=== PATIENT | male | born 1945 | race Caucasian/White ===

== ENCOUNTER 2017-02-04 14:00 | Outpatient (RCR) | payer MEDICARE ==
[2017-01-28 16:18] LABS: BASOPHILS # (AUTO) 0.1 10^3/uL (0.0-0.1); BASOPHILS % (AUTO) 1 % (0-10); EOSINOPHILS # (AUTO) 0.3 10^3/uL (0.0-0.3); EOSINOPHILS % (AUTO) 6 % (0-10); LYMPHOCYTES # (AUTO) 1.2 X 10^3 (1.0-4.0); LYMPHOCYTES % (AUTO) 24 % (12-44); MEAN CORPUSCULAR HEMOGLOBIN 30 PG (25-34); MEAN CORPUSCULAR HGB CONC 33 G/DL (32-36); MEAN CORPUSCULAR VOLUME 91 FL (80-99); MEAN PLATELET VOLUME 11.9 FL (7.4-10.4); MONOCYTES # (AUTO) 0.5 X 10^3 (0.0-1.0); MONOCYTES % (AUTO) 10 % (0-12); NEUTROPHILS % (AUTO) 60 % (42-75); PLATELET COUNT 191 10^3/uL (130-400); RED BLOOD COUNT 4.88 10^6/uL (4.35-5.85); RED CELL DISTRIBUTION WIDTH 14.8 % (10.0-14.5)
[2017-01-28 16:44] LABS: ALANINE AMINOTRANSFERASE 18 U/L (0-55); ALBUMIN 4.4 G/DL (3.2-4.5); ANION GAP 9 MMOL/L (5-14); ASPARTATE AMINO TRANSFERASE 22 U/L (5-34); BILIRUBIN,TOTAL 0.5 MG/DL (0.1-1.0); BLOOD UREA NITROGEN 15 MG/DL (7-18); BUN/CREATININE RATIO 15; CALCIUM 9.4 MG/DL (8.5-10.1); CARBON DIOXIDE 26 MMOL/L (21-32); CHLORIDE 105 MMOL/L (98-107); CREATININE SERUM 1.01 MG/DL (0.60-1.30); GFR ESTIMATED > 60; GLUCOSE 100 MG/DL (70-105); LACTATE DEHYDROGENASE 288 U/L (125-220); POTASSIUM 4.7 MMOL/L (3.6-5.0); SODIUM 140 MMOL/L (135-145); TOTAL PROTEIN 7.5 G/DL (6.4-8.2)
== END 2017-04-28 | disposition home or self-care (01) ==
LOC: PAR 14:00
PROVIDERS: ATTEND Internal Medicine Hematology & Oncology
DX: C83.34 Diffuse large B-cell lymphoma, lymph nodes of axilla and upper limb (principal); I25.10 Atherosclerotic heart disease of native coronary artery without angina pectoris; Z79.899 Other long term (current) drug therapy
CPT/HCPCS: 36415; 80053; 83615; 85025; 99213

== ENCOUNTER → 2018-02-03 | Outpatient (CLI) | payer MEDICARE ==
[2018-02-03 13:44] LABS: BASOPHILS % (AUTO) 1 % (0-10); EOSINOPHILS # (AUTO) 0.1 10^3/uL (0.0-0.3); EOSINOPHILS % (AUTO) 1 % (0-10); HEMATOCRIT 43 % (40-54); HEMOGLOBIN 14.5 G/DL (13.3-17.7); LYMPHOCYTES # (AUTO) 1.2 X 10^3 (1.0-4.0); LYMPHOCYTES % (AUTO) 19 % (12-44); MEAN CORPUSCULAR HEMOGLOBIN 31 PG (25-34); MEAN CORPUSCULAR HGB CONC 34 G/DL (32-36); MEAN CORPUSCULAR VOLUME 93 FL (80-99); MEAN PLATELET VOLUME 10.9 FL (7.4-10.4); MONOCYTES # (AUTO) 0.6 X 10^3 (0.0-1.0); MONOCYTES % (AUTO) 10 % (0-12); NEUTROPHILS # (AUTO) 4.4 X 10^3 (1.8-7.8); NEUTROPHILS % (AUTO) 70 % (42-75); PLATELET COUNT 190 10^3/uL (130-400); RED BLOOD COUNT 4.67 10^6/uL (4.35-5.85); RED CELL DISTRIBUTION WIDTH 15.1 % (10.0-14.5); WHITE BLOOD COUNT 6.4 10^3/uL (4.3-11.0)
[2018-02-03 14:06] LABS: ALANINE AMINOTRANSFERASE 21 U/L (0-55); ALBUMIN 4.3 GM/DL (3.2-4.5); ALKALINE PHOSPHATASE 77 U/L (40-136); BILIRUBIN,TOTAL 0.7 MG/DL (0.1-1.0); BUN/CREATININE RATIO 19; CALCIUM 9.6 MG/DL (8.5-10.1); CARBON DIOXIDE 28 MMOL/L (21-32); CHLORIDE 104 MMOL/L (98-107); CREATININE SERUM 1.17 MG/DL (0.60-1.30); GFR ESTIMATED > 60; GLUCOSE 83 MG/DL (70-105); POTASSIUM 4.4 MMOL/L (3.6-5.0); SODIUM 139 MMOL/L (135-145); TOTAL PROTEIN 7.2 GM/DL (6.4-8.2)
== END ==
LOC: EDSTATUS 04-29 11:24 → ONC 13:26
PROVIDERS: ATTEND Internal Medicine Hematology & Oncology
DX: C83.34 Diffuse large B-cell lymphoma, lymph nodes of axilla and upper limb (principal); I25.10 Atherosclerotic heart disease of native coronary artery without angina pectoris; E78.5 Hyperlipidemia, unspecified; K59.00 Constipation, unspecified; Z95.1 Presence of aortocoronary bypass graft; Z79.82 Long term (current) use of aspirin; Z79.899 Other long term (current) drug therapy; Z92.21 Personal history of antineoplastic chemotherapy; Z92.3 Personal history of irradiation
CPT/HCPCS: 36415; 80053; 83615; 85025; 99213

== ENCOUNTER 2018-03-03 05:50 | Outpatient (CLI) | payer MEDICARE ==
[~2018-03-03] VITALS: Ht 185.4 cm; Wt 98.9 kg
[2018-03-03] MEDS ORDERED: SOTA120T PO (15:01)
[2018-03-03] MEDS ORDERED: ASPI-586 PO (15:01)
[2018-03-03] MEDS ORDERED: FURO20TA4 PO (15:01)
[2018-03-03] MEDS ORDERED: LUBI24CA6 PO (15:01)
[2018-03-03] MEDS ORDERED: LANS30TA3 PO (15:01)
[2018-03-03] MEDS ORDERED: IBUP-1780 PO (15:01)
== END 2018-03-03 15:02 ==
LOC: PREOP 05:50
PROVIDERS: ATTEND Surgery
DX: Z01.818 Encounter for other preprocedural examination (principal); Z12.11 Encounter for screening for malignant neoplasm of colon

== ENCOUNTER 2018-03-08 07:37 | Day surgery (SDC) | payer MEDICARE ==
[~2018-03-08] VITALS: Ht 185.4 cm; Wt 98.9 kg
[~2018-03-08 07:37] MED LIST: ASPI-586 PO; FURO20TA4 PO; IBUP-1780 PO; LANS30TA3 PO; LUBI24CA6 PO; SOTA120T PO
--- OUTSIDE RECORDS SUMMARY | 2018-03-08 07:41 | XMS REPORT | Continuity of Care Document ---
Author Author [facility] Address Unknown Phone Unavailable Allergies Active Description Code Type Severity Reaction Onset Reported/Identified Relationship to Patient Clinical Status Yes No Known Drug Allergies [id number] N/A N/A Yes No Known Drug Allergies [id number] Drug Allergy Unknown N/A 08/20/2010 Medications There is no data. Problems Date Dx Coded Attending Type Code Diagnosis Diagnosed By 12/23/2010 Ot 202.88 12/23/2010 Ot 414.00 12/23/2010 Ot 789.09 12/23/2010 Ot V15.3 12/23/2010 Ot V45.81 12/23/2010 Ot V58.69 12/23/2010 Ot V87.41 01/23/2011 Ot 789.00 08/04/2012 Ot 202.80 08/21/2013 BURAK IBARRA MD Ot 202.80 OTH LYMPHOMAS EXTRANODAL SOLID ORGAN U 08/27/2014 BURAK IBARRA MD Ot 202.80 03/04/2015 BURAK IBARRA MD Ot 202.80 07/25/2015 Ot 202.80 07/25/2015 Ot 789.00 07/25/2015 Ot 793.1 07/25/2015 Ot 530.81 07/25/2015 Ot 564.00 07/25/2015 Ot 787.01 07/25/2015 Ot 787.91 07/25/2015 Ot 789.00 07/25/2015 Ot 202.80 07/25/2015 Ot 202.80 07/25/2015 Ot 414.00 07/25/2015 Ot V45.81 07/25/2015 Ot 600.00 07/25/2015 Ot 789.01 07/25/2015 Ot 789.01 07/25/2015 Ot V72.84 07/25/2015 Ot 530.11 07/25/2015 BURAK IABRRA MD Ot 202.80 09/18/2015 BURAK IBARRA MD Ot C83.30 09/18/2015 BURAK IBARRA MD Ot I25.10 09/18/2015 FRED SHEA, BURAK Ot Z79.899 09/19/2015 FRED SHEA, BURAK Ot C83.30 09/19/2015 FRED SHEA, BURAK Ot I25.10 09/19/2015 FRED SHEA, BURAK Ot Z79.899 10/10/2015 Ot C85.14 10/21/2015 Ot C85.14 10/23/2015 FRED SHEA, BURAK Ot C83.30 DIFFUSE LARGE B-CELL LYMPHOMA, UNSPECIFI 10/23/2015 FRED SHEA, BURAK Ot I25.10 ATHSCL HEART DISEASE OF [place] CORONARY 10/23/2015 BURAK IBARRA MD, Ot Z79.899 OTHER PRIMARY PRODUCTS INSPECTORS (CURRENT) DRUG THERAPY 12/27/2015 BURAK IBARRA MD Ot 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, LYMPH NODES OF AXI 12/30/2015 BURAK IBARRA MD Ot 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, LYMPH NODES OF AXI 12/31/2015 FRED SHEA, BURAK Ot 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, NODES OF AXI 12/31/2015 FRED SHEA, BURAK Ot 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, LYMPH NODES OF AXI 01/01/2016 BURAK IBARRA MD Ot C83.30 DIFFUSE LARGE B-CELL LYMPHOMA, UNSPECIFI 01/01/2016 FRED SHEA, BURAK Ot I25.10 ATHSCL HEART DISEASE OF [place] CORONARY 01/01/2016 BURAK IBARRA MD Ot Z79.899 OTHER PRIMARY PRODUCTS INSPECTORS (CURRENT) DRUG THERAPY 01/03/2016 BURAK IBARRA MD Ot C83.30 DIFFUSE LARGE B-CELL LYMPHOMA, UNSPECIFI 01/03/2016 FRED SHEA, BURAK Ot I25.10 ATHSCL HEART DISEASE OF [place] CORONARY 01/03/2016 BURAK IBARRA MD Ot Z79.899 OTHER PENITENTIARY (CURRENT) DRUG THERAPY 01/16/2016 BURAK IBARRA MD Ot 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, NODES OF AXI 01/16/2016 BURAK IBARRA MD Ot 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, LYMPH NODES OF AXI 01/22/2016 FRED SHEA, BURAK Ot 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, NODES OF AXI 01/22/2016 FRED SHEA, BURAK Ot 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, LYMPH NODES OF AXI 02/13/2016 FRED SHEA, BURAK Young C83.30 DIFFUSE LARGE B-CELL LYMPHOMA, UNSPECIFI 02/13/2016 BURAK IBARRA MD Ot I25.10 ATHSCL HEART DISEASE OF [place] CORONARY 02/13/2016 BURAK IBARRA MD Ot Z79.899 OTHER PENITENTIARY (CURRENT) DRUG THERAPY 02/27/2016 BURAK IBARRA MD, Ot C83.30 DIFFUSE LARGE B-CELL LYMPHOMA, UNSPECIFI 02/27/2016 BURAK IBARRA MD Ot I25.10 ATHSCL HEART DISEASE OF [place] CORONARY 02/27/2016 BURAK IBARRA MD Ot Z79.899 OTHER PENITENTIARY (CURRENT) DRUG THERAPY 2016 BURAK IBARRA MD, Ot C83.30 DIFFUSE LARGE B-CELL LYMPHOMA, UNSPECIFI 2016 BURAK IBARRA MD Ot I25.10 ATHSCL HEART DISEASE OF [place] CORONARY 2016 BURAK IBARRA MD Ot Z79.899 OTHER PENITENTIARY (CURRENT) DRUG THERAPY 04/07/2016 BURAK IBARRA MD, Ot C83.30 DIFFUSE LARGE B-CELL LYMPHOMA, UNSPECIFI 04/07/2016 BURAK IBARRA MD Ot I25.10 ATHSCL HEART DISEASE OF [place] CORONARY 04/07/2016 BURAK IBARRA MD Ot Z79.899 OTHER PENITENTIARY (CURRENT) DRUG THERAPY 01/21/2017 BURAK IBARRA MD Ot C83.30 DIFFUSE LARGE B-CELL LYMPHOMA, UNSPECIFI 01/21/2017 BURAK IBARRA MD Ot I25.10 ATHSCL HEART DISEASE OF [place] CORONARY 01/21/2017 BURAK IBARRA MD Ot Z79.899 OTHER PRIMARY PRODUCTS INSPECTORS (CURRENT) DRUG THERAPY 01/29/2017 BURAK IBARRA MD Ot 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, NODES OF AXI 01/29/2017 BURAK IBARRA MD Ot I25.10 ATHSCL HEART DISEASE OF [place] CORONARY 01/29/2017 BURAK IBARRA MD Ot Z79.899 OTHER PRIMARY PRODUCTS INSPECTORS (CURRENT) DRUG THERAPY 03/15/2017 BURAK IBARRA MD Ot 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, NODES OF AXI 03/15/2017 BURAK IBARRA MD Ot I25.10 ATHSCL HEART DISEASE OF [place] CORONARY 03/15/2017 BURAK IBARRA MD Ot Z79.899 OTHER PRIMARY PRODUCTS INSPECTORS (CURRENT) DRUG THERAPY 03/19/2017 BURAK IBARRA MD Ot 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, NODES OF AXI 03/19/2017 BURAK IBARRA MD Ot I25.10 ATHSCL HEART DISEASE OF [place] CORONARY 03/19/2017 BURAK IBARRA MD Ot Z79.899 OTHER PENITENTIARY (CURRENT) DRUG THERAPY 04/28/2017 BURAK IBARRA MD Ot 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, NODES OF AXI 04/28/2017 BURAK IBARRA MD Ot I25.10 ATHSCL HEART DISEASE OF [place] CORONARY 04/28/2017 BURAK IBARRA MD Ot Z79.899 OTHER PRIMARY PRODUCTS INSPECTORS (CURRENT) DRUG THERAPY 04/29/2017 BURAK IBARRA MD Ot 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, NODES OF AXI 04/29/2017 BURAK IBARRA MD Ot I25.10 ATHSCL HEART DISEASE OF [place] CORONARY 04/29/2017 BURAK IBARRA MD Ot Z79.899 OTHER PENITENTIARY (CURRENT) DRUG THERAPY 05/06/2017 BURAK IBARRA MD Ot 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, NODES OF AXI 05/06/2017 BURAK IBARRA MD Ot I25.10 ATHSCL HEART DISEASE OF [place] CORONARY 05/06/2017 BURAK IBARRA MD Ot Z79.899 OTHER PENITENTIARY (CURRENT) DRUG THERAPY 05/06/2017 BURAK IBARRA MD Ot 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, NODES OF AXI 05/06/2017 BURAK IBARRA MD Ot I25.10 ATHSCL HEART DISEASE OF [place] CORONARY 05/06/2017 BURAK IBARRA MD Ot Z79.899 OTHER PRIMARY PRODUCTS INSPECTORS (CURRENT) DRUG THERAPY 02/03/2018 BURAK IBARRA MD Ot 202.80 OTH LYMPHOMAS EXTRANODAL SOLID ORGAN U 02/03/2018 Ot 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, LYMPH NODES OF AXI 02/03/2018 BURAK IBARRA MD, Ot 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, NODES OF AXI 02/03/2018 BURAK IBARRA MD Ot 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, LYMPH NODES OF AXI 02/04/2018 FRED SHEA, BURAK Young 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, NODES OF AXI 02/04/2018 BURAK IBARRA MD Ot E78.5 HYPERLIPIDEMIA, UNSPECIFIED 02/04/2018 BURAK IBARRA MD Ot I25.10 ATHSCL HEART DISEASE OF [place] CORONARY 02/04/2018 BURAK IBARRA MD Ot K59.00 CONSTIPATION, UNSPECIFIED 02/04/2018 BURAK IBARRA MD Ot Z79.82 PENITENTIARY (CURRENT) USE OF ASPIRIN 02/04/2018 BURAK IBARRA MD Ot Z79.899 OTHER PRIMARY PRODUCTS INSPECTORS (CURRENT) DRUG THERAPY 02/04/2018 BURAK IBARRA MD Ot Z92.21 PERSONAL HISTORY OF ANTINEOPLASTIC CHEMO 02/04/2018 BURAK IBARRA MD Ot Z92.3 PERSONAL HISTORY OF IRRADIATION 02/04/2018 BURAK IBARRA MD Ot Z95.1 PRESENCE OF AORTOCORONARY BYPASS GRAFT 02/24/2018 BURAK IBARRA MD, Ot 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, NODES OF AXI 02/24/2018 BURAK IBARRA MD Ot E78.5 HYPERLIPIDEMIA, UNSPECIFIED 02/24/2018 BURAK IBARRA MD Ot I25.10 ATHSCL HEART DISEASE OF [place] CORONARY 02/24/2018 BURAK IBARRA MD Ot K59.00 CONSTIPATION, UNSPECIFIED 02/24/2018 BURAK IBARRA MD Ot Z79.82 PRIMARY PRODUCTS INSPECTORS (CURRENT) USE OF ASPIRIN 02/24/2018 BURAK IBARRA MD Ot Z79.899 OTHER PRIMARY PRODUCTS INSPECTORS (CURRENT) DRUG THERAPY 02/24/2018 BURAK IBARRA MD Ot Z92.21 PERSONAL HISTORY OF ANTINEOPLASTIC CHEMO 02/24/2018 BURAK IBARRA MD Ot Z92.3 PERSONAL HISTORY OF IRRADIATION 02/24/2018 BURAK IBARRA MD Ot Z95.1 PRESENCE OF AORTOCORONARY BYPASS GRAFT 03/02/2018 BURAK IBARRA MD Ot 202.80 OTH LYMPHOMAS EXTRANODAL SOLID ORGAN U 03/02/2018 Ot 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, LYMPH NODES OF AXI 03/02/2018 FRED SEHA, BURAK Ot 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, NODES OF AXI 03/02/2018 FRED SHEA, BURAK Ot 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, LYMPH NODES OF AXI 03/02/2018 FRED SHEA, BURAK Ot 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, NODES OF AXI 03/02/2018 BURAK IBARRA MD Ot E78.5 HYPERLIPIDEMIA, UNSPECIFIED 03/02/2018 BURAK IBARRA MD Ot I25.10 ATHSCL HEART DISEASE OF [place] CORONARY 03/02/2018 BURAK IBARRA MD Ot K59.00 CONSTIPATION, UNSPECIFIED 03/02/2018 BURAK IBARRA MD Ot Z79.82 PRIMARY PRODUCTS INSPECTORS (CURRENT) USE OF ASPIRIN 03/02/2018 BURAK IBARRA MD Ot Z79.899 OTHER PENITENTIARY (CURRENT) DRUG THERAPY 03/02/2018 BURAK IBARRA MD Ot Z92.21 PERSONAL HISTORY OF ANTINEOPLASTIC CHEMO 03/02/2018 BURAK IBARRA MD Ot Z92.3 PERSONAL HISTORY OF IRRADIATION 03/02/2018 BURAK IBARRA MD Ot Z95.1 PRESENCE OF AORTOCORONARY BYPASS GRAFT 03/03/2018 BURAK IBARRA MD Ot 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, NODES OF AXI 03/03/2018 BURAK IBARRA MD Ot E78.5 HYPERLIPIDEMIA, UNSPECIFIED 03/03/2018 BURAK IBARRA MD Ot I25.10 ATHSCL HEART DISEASE OF [place] CORONARY 03/03/2018 BURAK IBARRA MD Ot K59.00 CONSTIPATION, UNSPECIFIED 03/03/2018 BURAK IBARRA MD Ot Z79.82 PRIMARY PRODUCTS INSPECTORS (CURRENT) USE OF ASPIRIN 03/03/2018 BURAK IBARRA MD Ot Z79.899 OTHER PENITENTIARY (CURRENT) DRUG THERAPY 03/03/2018 BURAK IBARRA MD Ot Z92.21 PERSONAL HISTORY OF ANTINEOPLASTIC CHEMO 03/03/2018 BURAK IBARRA MD Ot Z92.3 PERSONAL HISTORY OF IRRADIATION 03/03/2018 BURAK IBARRA MD Ot Z95.1 PRESENCE OF AORTOCORONARY BYPASS GRAFT 03/03/2018 HINTON DO, AYANNA D Ot Z01.818 ENCOUNTER FOR OTHER PREPROCEDURAL EXAMIN 03/03/2018 HINTON DO, AYANNA D Ot Z12.11 ENCOUNTER FOR SCREENING FOR MALIGNANT NE 03/07/2018 HINTON DO, AYANNA D Ot Z01.818 ENCOUNTER FOR OTHER PREPROCEDURAL EXAMIN 03/07/2018 HINTON DO, AYANNA D Ot Z12.11 ENCOUNTER FOR SCREENING FOR MALIGNANT NE 03/07/2018 HINTON DO, AYANNA D Ot Z01.818 ENCOUNTER FOR OTHER PREPROCEDURAL EXAMIN 03/07/2018 HINTON DO, AYANNA D Ot Z12.11 ENCOUNTER FOR SCREENING FOR MALIGNANT NE 03/08/2018 BURAK IBARRA MD Ot 202.80 OTH LYMPHOMAS EXTRANODAL SOLID ORGAN U 03/08/2018 Ot 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, LYMPH NODES OF AXI 03/08/2018 BURAK IBARRA MD Ot 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, NODES OF AXI 03/08/2018 BURAK IBARRA MD Ot 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, LYMPH NODES OF AXI 03/08/2018 BURAK IBARRA MD Ot 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, NODES OF AXI 03/08/2018 BURAK IBARRA MD Ot E78.5 HYPERLIPIDEMIA, UNSPECIFIED 03/08/2018 BURAK IBARRA MD Ot I25.10 ATHSCL HEART DISEASE OF [place] CORONARY 03/08/2018 BURAK IBARRA MD Ot K59.00 CONSTIPATION, UNSPECIFIED 03/08/2018 BURAK IBARRA MD Ot Z79.82 PRIMARY PRODUCTS INSPECTORS (CURRENT) USE OF ASPIRIN 03/08/2018 BURAK IBARRA MD Ot Z79.899 OTHER PENITENTIARY (CURRENT) DRUG THERAPY 03/08/2018 BURAK IBARRA MD Ot Z92.21 PERSONAL HISTORY OF ANTINEOPLASTIC CHEMO 03/08/2018 BURAK IBARRA MD Ot Z92.3 PERSONAL HISTORY OF IRRADIATION 03/08/2018 BURAK IBARRA MD, Ot Z95.1 PRESENCE OF AORTOCORONARY BYPASS GRAFT Procedures There is no data. Results There is no data. Encounters ACCT No. Visit Date/Time Discharge Status Pt. Type Provider Facility Loc./Unit Complaint [id number] 01/13/2018 10:43:43 01/13/2018 23:59:59 CLS Outpatient Adolph Bush V [id number] 03/03/2018 05:50:00 03/03/2018 15:02:00 DIS Outpatient AYANNA HINTON DO [facility] PREOP COLONOSCOPY [id number] 02/03/2018 13:26:00 02/03/2018 23:59:59 CLS Outpatient BURAK IBARRA MD [facility] ONC [id number] 02/04/2017 14:00:00 04/28/2017 00:01:00 DIS Outpatient BURAK IBARRA MD [facility] PAR [id number] 02/06/2016 14:30:00 2016 00:01:00 DIS Outpatient BURAK IBARRA MD [facility] PAR [id number] 12/27/2015 06:45:00 12/27/2015 23:59:59 CLS Outpatient BURAK IBARRA MD [facility] RAD LYMPHOMA [id number] 09/26/2015 09:35:00 10/23/2015 00:01:00 DIS Outpatient BURAK IBARRA MD [facility] PAR [id number] 07/30/2014 13:16:00 07/30/2014 23:59:59 CLS Outpatient BURAK IBARRA MD [facility] PAR 1 YEAR F/U [id number] 08/07/2013 14:30:00 08/21/2013 14:35:00 DIS Outpatient BURAK IBARRA MD [facility] PAR LABS/OV [id number] 03/08/2018 07:37:00 ACT Outpatient AYANNA HINTON DO [facility] ENDO SCREENING [id number] 09/20/2015 07:18:00 Document Registration [id number] 08/01/2012 13:30:00 Document Registration [id number] 12/10/2011 05:46:00 Document Registration [id number] 12/08/2011 07:30:00 Document Registration [id number] 10/09/2011 06:51:00 Document Registration [id number] 10/07/2011 14:20:00 Document Registration [id number] 07/27/2011 14:14:00 Document Registration [id number] 07/23/2011 05:50:00 Document Registration [id number] 01/24/2011 00:00:00 Document Registration [id number] 12/03/2010 08:01:00 Document Registration [id number] 10/30/2010 07:20:00 Document Registration [id number] 10/15/2010 06:26:00 Document Registration [id number] 10/09/2010 10:05:00 Document Registration [id number] 09/13/2017 12:47:14 09/13/2017 23:59:59 DIS Outpatient Mamie Cotton [facility] [id number] 01/15/2017 09:50:00 01/15/2017 23:59:59 CLS Outpatient [id number] 07/30/2014 13:17:07 ACT Document Registration [id number] 05/31/2017 10:22:47 Document Registration [id number] 05/04/2017 10:17:48 Document Registration
[2018-03-08] MEDS ORDERED: LACTATED RINGERS 1,000 ML IV ONE (07:42)
[2018-03-08] MEDS ORDERED: LACTATED RINGERS 1,000 ML IV STA (07:47)
[2018-03-08 08:06] VITALS: BP 134/78
[2018-03-08] MEDS ORDERED: PROPOFOL INJECTION 50 ML IV ONE (09:28)
[2018-03-08] MEDS ORDERED: MIDAZOLAM 2 MG/2 ML (VERSED) VIAL ONE (09:29)
--- NOTE | 2018-03-08 09:31 | Progress Note-Pre Operative ---
Pre-Operative Progress Note H&P Reviewed The H&P was reviewed, patient examined and no changes noted. Date Seen by Provider: Mar 08, 2018 Time Seen by Provider: : Date H&P Reviewed: Mar 08, 2018 Time H&P Reviewed: 09:31 Pre-Operative Diagnosis: constipation, screening colonoscopy AYANNA HINTON DO Mar 08, 2018 09:31
--- NOTE | 2018-03-08 10:37 | Progress Note-Post Operative ---
Post-Operative Progess Note Surgeon (s)/Solution Architect (s) Surgeon AYANNA HINTON DO Solution Architect: na Pre-Operative Diagnosis constipation, screening colonoscopy Post-Operative Diagnosis incomplete colonoscopy Procedure & Operative Findings Date of Procedure 03/08/18 Procedure Performed/Findings incomplete colonoscopy Anesthesia Type per stain dipper Estimated Blood Loss Estimated blood loss (mL): none Specimens/Packing Specimens Removed na AYANNA HINTON DO Mar 08, 2018 10:37
--- NOTE | 2018-03-08 10:38 | Discharge Inst-Simple/Standard ---
Discharge Inst-Standard Patient Instructions/Follow Up Plan of Care/Instructions/FU: 2 weeks Yifan for follow up after barium enema. Activity as Tolerated: Yes Discharge Diet: Regular Diet AYANNA HINTON DO Mar 08, 2018 10:38
[2018-03-08 10:45] VITALS: BP 98/58
[2018-03-08 11:15] VITALS: BP 130/76
[2018-03-08 12:50] VITALS: BP 130/76
--- NOTE | 2018-03-08 13:13 | Anesthesia-General Post-Op ---
MAC Patient Condition Mental Status/LOC: Same as Preop Cardiovascular: Satisfactory Nausea/Vomiting: Absent Respiratory: Satisfactory Pain: Controlled Complications: Absent Post Op Complications Complications None Follow Up Care/Instructions Patient Instructions None needed. Anesthesiology Discharge Order Discharge Order Patient is doing well, no complaints, stable vital signs, no apparent adverse anesthesia problems. No complications reported per nursing. ELIZABETH STEELE CRNA Mar 08, 2018 13:13
--- NOTE | 2018-03-08 13:40 | Diagnostic Imaging Report ---
PROCEDURE: CT abdomen and pelvis without contrast. TECHNIQUE: Multiple contiguous axial images were obtained through the abdomen and pelvis without the use of intravenous contrast. INDICATION: Incomplete colonoscopy. FINDINGS: The lung bases are clear. No discrete liver mass is identified. The gallbladder is surgically absent. The pancreas and spleen are unremarkable. No adrenal mass is seen. Bilateral renal cysts appear stable. Aorta is heavily calcified but nonaneurysmal. There is no ascites. Contrast is seen throughout the colon. No colonic wall thickening is seen. No annular constricting lesion is seen. No definite polypoid lesion is detected. Small bowel loops are normal caliber. Bladder and prostate are unremarkable. IMPRESSION: Unremarkable noncontrast CT of the abdomen and pelvis. No colonic mass is identified. Bilateral renal cysts are stable compared with prior CT from September 20, 2015. Dictated by: Dictated on workstation # [id number]
--- NOTE | 2018-03-08 15:23 | OPERATIVE REPORT ---
DATE OF SERVICE: 03/08/2018 PREOPERATIVE DIAGNOSIS: Screening colonoscopy. POSTOPERATIVE DIAGNOSIS: Incomplete colonoscopy. SURGEON: Ayanna Saha DO. PROCEDURE: Incomplete colonoscopy. ANESTHESIA: Per FOOD SCIENCE TECHNICIAN. ESTIMATED BLOOD LOSS: None. COMPLICATIONS: None. INDICATIONS: The patient is a 72-year-old male with need for screening colonoscopy. He understands risks and benefits of procedure and wished to proceed with procedure. Consent was signed on the chart. DESCRIPTION OF PROCEDURE: The patient was taken to the endoscopy suite, placed in left lateral recumbent position. Timeout was performed. Digital rectal exam was performed. No palpable polyps, masses or ulcerations. The scope was inserted in the rectum and advanced all the way to the ascending colon. The patient was repositioned multiple times and the patient had a floppy colon and was unable to advance the scope any further. The patient again was repositioned multiple times without any success at advancing the scope any further. At this time, I decided to go ahead with withdrawal of the scope. There were no polyps, masses or ulcerations seen within the ascending colon that was visualized. There were no polyps, mass or ulcerations in the transverse, descending, sigmoid colon. Once in the rectum, scope was also retroflexed noting no other pathology. Scope was returned to its normal position, slowly withdrawn until completely removed. The patient tolerated the procedure well without any complications and was taken to the recovery room in stable condition. RECOMMENDATIONS: The patient will get barium enema and will follow up in the office in couple of weeks after having followed up after the barium enema or CT scan with rectal contrast was performed. Job ID: [id number] DocumentID: [id number] Dictated Date: 03/08/2018 10:40:47 [employer] Date: 03/08/2018 15:23:08 Dictated By: AYANNA SAHA DO [facility]
== END 2018-03-08 12:50 | disposition home or self-care (01) ==
LOC: ENDO 07:37
PROVIDERS: ATTEND Surgery
DX: Z12.11 Encounter for screening for malignant neoplasm of colon (principal); K59.00 Constipation, unspecified; I10 Essential (primary) hypertension; I25.10 Atherosclerotic heart disease of native coronary artery without angina pectoris; C83.30 Diffuse large B-cell lymphoma, unspecified site; Z79.82 Long term (current) use of aspirin; Z95.1 Presence of aortocoronary bypass graft; Z95.5 Presence of coronary angioplasty implant and graft
CPT/HCPCS: G0121; 74176

== ENCOUNTER 2019-02-02 13:34 | Outpatient (RCR) | payer MEDICARE ==
[2019-02-02 13:50] LABS: BASOPHILS % (AUTO) 0 % (0-10); EOSINOPHILS # (AUTO) 0.2 10^3/uL (0.0-0.3); EOSINOPHILS % (AUTO) 3 % (0-10); HEMATOCRIT 44 % (40-54); HEMOGLOBIN 14.1 G/DL (13.3-17.7); LYMPHOCYTES # (AUTO) 1.5 X 10^3 (1.0-4.0); LYMPHOCYTES % (AUTO) 26 % (12-44); MEAN CORPUSCULAR HEMOGLOBIN 30 PG (25-34); MEAN CORPUSCULAR HGB CONC 32 G/DL (32-36); MEAN CORPUSCULAR VOLUME 91 FL (80-99); MEAN PLATELET VOLUME 11.4 FL (7.4-10.4); MONOCYTES # (AUTO) 0.7 X 10^3 (0.0-1.0); MONOCYTES % (AUTO) 12 % (0-12); NEUTROPHILS # (AUTO) 3.5 X 10^3 (1.8-7.8); NEUTROPHILS % (AUTO) 59 % (42-75); PLATELET COUNT 176 10^3/uL (130-400); RED CELL DISTRIBUTION WIDTH 14.9 % (10.0-14.5); WHITE BLOOD COUNT 5.9 10^3/uL (4.3-11.0)
[2019-02-02 14:14] LABS: ALBUMIN 4.4 GM/DL (3.2-4.5); BILIRUBIN,TOTAL 0.5 MG/DL (0.1-1.0); CALCIUM 9.6 MG/DL (8.5-10.1); CREATININE SERUM 1.22 MG/DL (0.60-1.30); POTASSIUM 4.4 MMOL/L (3.6-5.0); TOTAL PROTEIN 7.1 GM/DL (6.4-8.2)
== END 2019-05-03 | disposition home or self-care (01) ==
LOC: ONC 13:34
PROVIDERS: ATTEND Internal Medicine Hematology & Oncology
DX: C83.34 Diffuse large B-cell lymphoma, lymph nodes of axilla and upper limb (principal); I25.10 Atherosclerotic heart disease of native coronary artery without angina pectoris; E78.5 Hyperlipidemia, unspecified; K59.00 Constipation, unspecified; Z95.1 Presence of aortocoronary bypass graft; Z79.82 Long term (current) use of aspirin; Z79.899 Other long term (current) drug therapy; Z92.21 Personal history of antineoplastic chemotherapy; Z92.3 Personal history of irradiation
CPT/HCPCS: 36415; 80053; 83615; 85025; 99213

== ENCOUNTER → 2020-02-08 | Outpatient (CLI) | payer MEDICARE ==
[2020-02-08 13:41] LABS: BASOPHILS # (AUTO) 0.1 10^3/uL (0.0-0.1); BASOPHILS % (AUTO) 1 % (0-10); EOSINOPHILS # (AUTO) 0.3 10^3/uL (0.0-0.3); EOSINOPHILS % (AUTO) 5 % (0-10); HEMATOCRIT 40 % (40-54); HEMOGLOBIN 12.8 G/DL (13.3-17.7); LYMPHOCYTES # (AUTO) 0.5 X 10^3 (1.0-4.0); LYMPHOCYTES % (AUTO) 8 % (12-44); MEAN CORPUSCULAR HEMOGLOBIN 29 PG (25-34); MEAN CORPUSCULAR HGB CONC 32 G/DL (32-36); MEAN CORPUSCULAR VOLUME 91 FL (80-99); MEAN PLATELET VOLUME 11.5 FL (7.4-10.4); MONOCYTES # (AUTO) 0.6 X 10^3 (0.0-1.0); MONOCYTES % (AUTO) 9 % (0-12); NEUTROPHILS # (AUTO) 5.1 X 10^3 (1.8-7.8); NEUTROPHILS % (AUTO) 77 % (42-75); PLATELET COUNT 138 10^3/uL (130-400); RED CELL DISTRIBUTION WIDTH 16.8 % (10.0-14.5); WHITE BLOOD COUNT 6.6 10^3/uL (4.3-11.0)
[2020-02-08 14:05] LABS: ALBUMIN 3.7 GM/DL (3.2-4.5); BILIRUBIN,TOTAL 0.9 MG/DL (0.1-1.0); CALCIUM 8.8 MG/DL (8.5-10.1); CREATININE SERUM 1.31 MG/DL (0.60-1.30); POTASSIUM 4.4 MMOL/L (3.6-5.0); TOTAL PROTEIN 6.3 GM/DL (6.4-8.2)
== END ==
LOC: EDSTATUS 05-04 12:37 → ONC 13:24
PROVIDERS: ATTEND Internal Medicine Hematology & Oncology
DX: C83.34 Diffuse large B-cell lymphoma, lymph nodes of axilla and upper limb (principal); I11.9 Hypertensive heart disease without heart failure; I25.10 Atherosclerotic heart disease of native coronary artery without angina pectoris; M54.9 Dorsalgia, unspecified; R79.89 Other specified abnormal findings of blood chemistry; Z95.0 Presence of cardiac pacemaker; Z98.890 Other specified postprocedural states; Z90.49 Acquired absence of other specified parts of digestive tract
CPT/HCPCS: 80053; 83615; 85025; G0463; 99213